=== PATIENT | female | born 1960 | race Caucasian/White ===

== ENCOUNTER 2022-04-02 12:23 | Emergency (ER) | payer OTHER ==
[~2022-04-02] VITALS: Ht 165.1 cm; Wt 54.0 kg
[2022-04-02] MEDS ORDERED: NAPR-1176 MT (13:58)
[2022-04-02] MEDS ORDERED: NAPROXEN 250MG TABLET PO STA (13:59)
[2022-04-02] MEDS ORDERED: IBUPROFEN 600MG TABLET PO ONE (15:15)
[2022-04-02 15:39] VITALS: BP 132/69
== END 2022-04-02 16:45 | disposition home or self-care (01) ==
LOC: ER 12:23
DX: M54.6 Pain in thoracic spine (principal); I10 Essential (primary) hypertension; E11.9 Type 2 diabetes mellitus without complications; I49.9 Cardiac arrhythmia, unspecified; Z90.11 Acquired absence of right breast and nipple; Z85.3 Personal history of malignant neoplasm of breast; Z95.0 Presence of cardiac pacemaker; Z88.5 Allergy status to narcotic agent; W22.8XXA Striking against or struck by other objects, initial encounter; Y93.89 Activity, other specified; Y92.811 Bus as the place of occurrence of the external cause; Y99.8 Other external cause status
CPT/HCPCS: 71045; 99283